=== PATIENT | female | born 1955 | race Caucasian/White ===

== ENCOUNTER 2018-07-30 01:41 | Emergency (ER) | payer MEDICARE, BC ==
[2018-07-30 08:25] VITALS: BP 136/67; PULSE 80; RESP 20; TEMP 95.7; O2SAT 100
== END 2018-07-30 08:30 | disposition home or self-care (01) | DRG 639 ==
LOC: ED 01:41
DX: E11.649 Type 2 diabetes mellitus with hypoglycemia without coma (principal)
CPT/HCPCS: 82962; 99282; 99283

== ENCOUNTER 2019-03-14 14:59 | Emergency (ER) | payer MEDICARE, BC ==
[2019-03-14 15:31] LABS: BASOPHILS % (AUTO) 0 % (0-3); EOSINOPHILS % (AUTO) 0 % (0-9); HEMATOCRIT 34 % (35-47); HEMOGLOBIN 10.5 gm/dl (12.0-15.5); LYMPHOCYTES % (AUTO) 5.6 % (10-50); MEAN CORPUSCULAR HEMOGLOBIN 26.2 pg (27.0-32.0); MEAN CORPUSCULAR HGB CONC 31.1 gm/dl (32.0-36.0); MEAN CORPUSCULAR VOLUME 84 fL (81-99); MONOCYTES % (AUTO) 4.2 % (0-12); NEUTROPHILS % (AUTO) 89.5 % (37-80)
[2019-03-14 15:35] VITALS: O2SAT 96
[2019-03-14 15:49] LABS: ALBUMIN 3.4 gm/dl (3.4-5.0); BILIRUBIN,TOTAL 0.2 mg/dl (0.2-1.0); CALCIUM 8.2 mg/dl (8.5-10.1); CARBON DIOXIDE 22.4 mEq/L (21-32); CREATININE 0.8 mg/dl (0.60-1.00); POTASSIUM 4.6 mMol/L (3.5-5.1)
[2019-03-14 15:54] VITALS: TEMP 96.9
[2019-03-14 15:56] VITALS: RESP 18
[2019-03-14 16:05] LABS: APPEARANCE,URINE Clear; BILIRUBIN,URINE NEGATIVE (NEGATIVE); COLOR,URINE Yellow; GLUCOSE, URINE (UA) NEGATIVE (NEGATIVE); KETONES,URINE NEGATIVE (NEGATIVE); LEUKOCYTE ESTERASE ,URINE NEGATIVE (NEGATIVE); NITRATE,URINE NEGATIVE (NEGATIVE); OCCULT BLOOD,URINE TRACE INTACT (NEG-TRACE); UROBILINOGEN,URINE 0.2 (0.2-1.0 EU)
[2019-03-14 16:14] LABS: BACTERIA TRACE (< 1+); CRYSTALS NEGATIVE (0-3 AVE/HPF); EPITHELIAL CELLS 0-1 (SQUAMOUS); RBC,URINE 0-2 (0-3AV/HPF); WBC,URINE 0-1 (0-5AV/HPF)
[2019-03-14 16:57] VITALS: BP 166/65; PULSE 86
== END 2019-03-14 17:10 | disposition home or self-care (01) | DRG 641 ==
LOC: ED 14:59
DX: E16.2 Hypoglycemia, unspecified (principal); E11.9 Type 2 diabetes mellitus without complications
CPT/HCPCS: 36415; 80053; 81001; 82962; 85025; 99282; 99283

== ENCOUNTER 2019-03-23 17:53 | Emergency (ER) | payer MEDICARE, BC ==
[2019-03-23 18:08] VITALS: TEMP 97.1; O2SAT 100
[2019-03-23 20:25] VITALS: RESP 16
[2019-03-23 20:26] VITALS: BP 162/55; PULSE 82
== END 2019-03-23 19:15 | disposition home or self-care (01) | DRG 641 ==
LOC: ED 17:53
DX: E16.2 Hypoglycemia, unspecified (principal); E11.9 Type 2 diabetes mellitus without complications
CPT/HCPCS: 82962; 99283; 99291

== ENCOUNTER 2019-05-17 13:19 | Emergency (ER) | payer MEDICARE, BC ==
[2019-05-17 13:50] LABS: BASOPHILS % (AUTO) 1 % (0-3); EOSINOPHILS % (AUTO) 2 % (0-9); HEMATOCRIT 35 % (35-47); HEMOGLOBIN 11.2 gm/dl (12.0-15.5); LYMPHOCYTES % (AUTO) 15.7 % (10-50); MEAN CORPUSCULAR HEMOGLOBIN 26.4 pg (27.0-32.0); MEAN CORPUSCULAR HGB CONC 32.1 gm/dl (32.0-36.0); MEAN CORPUSCULAR VOLUME 82 fL (81-99); MONOCYTES % (AUTO) 6.4 % (0-12); NEUTROPHILS % (AUTO) 75.4 % (37-80)
[2019-05-17 13:59] LABS: CALCIUM 8.3 mg/dl (8.5-10.1); CARBON DIOXIDE 21.4 mEq/L (21-32); CREATININE 0.75 mg/dl (0.60-1.00); CRP INFLAMMATORY 0.71 mg/dl (0.00-0.33); POTASSIUM 4.1 mMol/L (3.5-5.1)
[2019-05-17 14:32] LABS: APPEARANCE,URINE Clear; BILIRUBIN,URINE NEGATIVE (NEGATIVE); COLOR,URINE Light yellow; GLUCOSE, URINE (UA) NEGATIVE (NEGATIVE); KETONES,URINE NEGATIVE (NEGATIVE); LEUKOCYTE ESTERASE ,URINE NEGATIVE (NEGATIVE); NITRATE,URINE NEGATIVE (NEGATIVE); OCCULT BLOOD,URINE TRACE INTACT (NEG-TRACE); UROBILINOGEN,URINE 0.2 (0.2-1.0 EU)
[2019-05-17 14:42] VITALS: TEMP 97.6
[2019-05-17 14:45] LABS: RBC,URINE 0-2 (0-3AV/HPF)
[2019-05-17 14:46] LABS: BACTERIA 2+ (< 1+); CRYSTALS NEGATIVE (0-3 AVE/HPF); EPITHELIAL CELLS NEGATIVE (SQUAMOUS); WBC,URINE 0-1 (0-5AV/HPF)
[2019-05-17 14:55] VITALS: O2SAT 97
[2019-05-17 15:47] VITALS: BP 137/71; PULSE 83; RESP 16
== END 2019-05-17 15:56 | disposition home or self-care (01) | DRG 641 ==
LOC: ED 13:19
DX: E16.2 Hypoglycemia, unspecified (principal); E11.9 Type 2 diabetes mellitus without complications
CPT/HCPCS: 36415; 80048; 81001; 85025; 86140; 87088; 99282